=== PATIENT | male | born 1950 | race Caucasian/White ===

== ENCOUNTER 2018-04-24 12:30 | Inpatient (IN) | payer OTHER ==
[2018-04-24] VITALS (13 sets, daily range): BP systolic 131–160; BP diastolic 81–103; BMI 32.2
[~2018-04-24] VITALS: Ht 182.9 cm; Wt 103.8 kg
--- NOTE | ~2018-04-24 | HEMODYNAMI ---
PATIENT:DESIREE MORRELL MEDICAL RECORD: [id number] : 46 LOCATION:[facility] D.2121 LOCATED WITHIN [facility]# [id number] ADMISSION DATE: 04/24/18 Generatedon:04/25/201810:01 Patient name: DESIREE MORRELL Patient #: [id number] SSN: : 1950 Date of study: 04/25/2018 Page: Of Hemodynamic Procedure Report Patient Data Patient Demographics Procedure consent was obtained First Name: DESIREE Gender: Male Last Name: PETROS : 1950 [facility] Initial: C Age: 67 year(s) Patient #: [id number] Race: Additional ID: [id number] Contact details [address]: [address] [place] [address] [place] State: [place] City: [place] Zip code: [address] Past Medical History History of disease Date Diagnosis Comments CHF Allergies Allergen Reaction Date Comments Reported Other allergy 03/24/2015 Lisinopril, Niacin IV contrast dye 03/24/2015 Admission Admission Data Admission Date: 04/24/2018 Admission Time: 17:52 Admit Source: Other Insurance Payor: [facility] Room #: D.2121 Health Care Lab Results Lab Result Date: 04/25/2018 Lab Result Time: 4:21 Biochemistry Name Units Result Min Max BUN mg/dl 19 --(----)*- 7 18 Creatinine mg/dl 1.3 --(---*)-- 0.6 1.3 Troponin l ng/ml 0.114 --(----)-* 0 0.06 CBC Name Units Result Min Max Hematocrit % 45.6 --(-*--)-- 42 54 Hemoglobin g/dl 15.5 --(-*--)-- 13.5 17.5 Procedure Procedure Types Cath Procedure Diagnostic Procedure LHC LHC w/Coronaries Procedure Description Procedure Date Procedure Date: 04/25/2018 Procedure Start Time: 9:49 Procedure End Time: 9:58 Procedure Staff Name Function Khadar Flores MD Performing Physician Norris Almeida RT Scrub Jose Raul Toledo RN Nurse Rohan Koehler RN Furniture Installer Richard Stauffer RT Monitor Procedure Data Cath Procedure Fluoroscopy Diagnostic fluoroscopy Total fluoroscopy Time: 0.9 time: 0.9 min min Diagnostic fluoroscopy Total fluoroscopy dose: 498 dose: 498 mGy mGy Contrast Material Contrast Material Type Amount (ml) Isovue 300 37 Entry Location Entry Primary Successful Side Size Upsize Upsize Entry Closure Succes sful Closure Location (Fr) 1 (Fr) 2 (Fr) Remarks Device Remarks Radial Right 6 Fr artery Short Estimated blood loss: 5 ml Diagnostic catheters Device Type Used For End Catheter Placement DIAGNOSTIC [place] 110cm 5 Procedure Fr catheter ([id number]) Procedure Medications Medication Administration Route Dosage 0.9% NaCl I.V. 100 ml/hr Oxygen etCO2 Nasal cannula 2 l/min Heparin Flush Bag added to field 2 bags (1000units/500ml NS) Lidocaine 2% added to field 20 Radial Cocktail added to field 1 syringe (Verapomil 2mg/Nitro 400mcg/Heparin 1500units) Versed I.V. 2 mg Fentanyl I.V. 100 mcg Radial Cocktail I.A. 1 syringe (Verapomil 2mg/Nitro 400mcg/Heparin 1500units) Hemodynamics Rest HGB: 15.5 (g/dl) Heart Rate: 90 (bpm) Pressure Samples Time Site Value (mmHg) Purpose Heart Use Rate(bpm) 9:51 LV 104/9,11 Snapshot 77 Snapshots Pre Cath Intra NCS Post Cath Vital Signs Time Heart Resp SPO2 etCO2 NIBP (mmHg) Rhythm Pain Sedation Rate (ipm) (%) (mmHg) Status Level (bpm) 9:33:27 82 21 96 30.8 135/100(122) NSR 0 (11) 10(A) , No pain 9:37:35 85 20 92 32.3 137/101(113) NSR 0 (11) 10(A) , No pain 9:41:45 81 19 91 32.3 132/92(108) NSR 0 (11) 10(A) , No pain 9:45:53 84 19 92 31.5 125/93(109) NSR 0 (11) 10(A) , No pain 9:49:57 78 19 91 31.5 131/94(108) NSR 0 (11) 10(A) , No pain 9:54:08 82 20 92 27.7 118/80(94) NSR 0 (11) 10(A) , No pain 9:58:14 76 17 88 29.3 122/83(101) NSR 0 (11) 10(A) , No pain Medications Time Medication Route Dose Verified Delivered Reason Notes Effectiveness by by 9:33:20 0.9% NaCl I.V. 100 Jose Raul Jose Raul Per ml/hr Tre Toledo physician RN RN 9:33:33 Oxygen etCO2 2 l/min Jose Raul Jose Raul for low 02 Nasal Lorigan Altaigan sats cannula RN RN 9:33:44 Heparin Flush added 2 bags Jose Raul Jose Raul used for Bag to Tre Toledo procedure (1000units/500ml field RN RN NS) 9:33:53 Lidocaine 2% added 20ml Jose Raul Jose Raul for local to vial Lorigan Lorigan anesthetic field RN RN 9:34:04 Radial Cocktail added 1 Jose Raul Jose Raul used for (Verapomil to syringe Altaigan Tre procedure 2mg/Nitro field KELLY RN 400mcg/Heparin 1500units) 9:44:53 Versed I.V. 2 mg Jose Raul Jose Raul for sedation Tre Toledo RN RN 9:45:00 Fentanyl I.V. 100 mcg Jose Raul Jose Raul for sedation Tre Toledo RN RN 9:50:43 Radial Cocktail I.A. 1 Jose Raul Khadar for (Verapomil syringe Tre Flores MD vasodilation 2mg/Nitro RN 400mcg/Heparin 1500units) Procedure Log Time Note 8:57:14 Informed consent obtained and on chart 8:57:16 Admit Source: Other 8:57:42 Diagnostic Cath status Elective 8:57:43 Time tracking: Regular hours (M-F 7:00 - 5:00) 8:57:47 Plan of Care:Hemodynamics will remain stable., Cardiac rhythm will remain stable., Comfort level will be maintained., Respiratory function will remain adequate., Patient/ family verbilizes understanding of procedure., Procedure tolerated without complication., Recovers from procedure without complications.. 8:58:08 H&P Date Dictated: 04/24/2018 Within 30 days and on chart.. 8:59:08 Lab Result : BUN 19 mg/dl 8:59:08 Lab Result : Creatinine 1.3 mg/dl 8:59:08 Lab Result : Troponin l 0.114 ng/ml 8:59:08 Lab Result : Hematocrit 45.6 % 8:59:08 Lab Result : Hemoglobin 15.5 g/dl 8:59:10 Lab results completed and on chart. 9:11:51 Jose Raul Toledo RN sent for patient. Start room use. 9:20:38 Insurance Payor : [facility] 9:23:03 ----Pre-sedation anethsthesia assessment.---- 9:23:19 Patient received from PCU to CCL 2 Alert and oriented. Tansferred to table in Supine position. 9:23:20 Warm blankets applied, and keshav hugger turned on for patient comfort. 9:23:21 Correct patient and procedure confirmed by team. 9:23:28 Pre-procedure instructions explained to patient. 9:23:29 Pre-op teaching completed and patient verbalized understanding. 9:23:35 Family in patients room. 9:23:42 Previous problem with sedation/anesthesia? No ? 9:23:56 Snore? Yes 9:24:00 Sleep apnea? Yes 9:24:02 Deviated septum? No 9:24:04 Opens mouth fully? Yes 9:24:05 Sticks out tongue? Yes 9:24:13 Airway obstruction? Yes COPD 9:24:24 Dentures? Yes IN TIGHT 9:25:54 ALLERGY: CONTRAST, LISINOPRIL, NIACIN 9:26:01 Is the patient allergic to Iodine/contrast media? Yes. 9:26:03 Was the patient premedicated? Yes 9:26:11 Is patient on blood thinner?No 9:26:14 Patient diabetic? Yes. 9:26:16 If diabetic: On Metformin? Yes 9:26:21 If on Metformin: Last Dose? 04/21/2018 9:26:48 Patient pain scale 0/10 ?. 9:28:16 IV patent on arrival in left hand with 0.9% NaCl at O. 9:28:22 Pre procedure: right dorsailis pedis pulse 1+ Palpable, but thready & weak; easily obliterated 9:28:35 ECG and BP/O2 sat monitors applied to patient. 9:28:36 Vital chart was started 9:28:37 Baseline sample Acquired. 9:28:46 Rhythm: paced 9:30:37 Use device set Radial Dx or PCI 9:30:38 ACIST Syringe (14103) opened to sterile field. 9:30:39 Medline Cath Pack ([id number]) opened to sterile field. 9:30:40 Bag Decanter (2002) opened to sterile field. 9:30:40 DIAGNOSTIC WIRE .035 260cm J wire (396238) opened to sterile field. 9:30:41 ACIST Hand Control (50621) opened to sterile field. 9:30:42 ACIST Manifold (25150) opened to sterile field. 9:30:43 Tegaderm 4 x 4 (1626W) opened to sterile field. 9:30:44 MBrace Wrist Support ([id number]) opened to sterile field. 9:30:49 SHEATH 6FR Slender (04-3969) opened to sterile field. 9:31:06 Right Radial & Right Groin area was prepped with chlora-prep and draped in sterile fashion 9:31:11 Alarms reviewed by R. N. 9:31:13 Sharps counted by scrub and verified by R.N. 9:33:20 0.9% NaCl 100 ml/hr I.V. was administered by Jose Raul Toledo RN; Per physician; 9:33:33 Oxygen 2 l/min etCO2 Nasal cannula was administered by Jose Raul Toledo RN; for low 02 sats; 9:33:44 Heparin Flush Bag (1000units/500ml NS) 2 bags added to field was administered by Jose Raul Toledo RN; used for procedure; 9:33:53 Lidocaine 2% 20ml vial added to field was administered by Jose Raul Toledo RN; for local anesthetic; 9:34:04 Radial Cocktail (Verapomil 2mg/Nitro 400mcg/Heparin 1500units) 1 syringe added to field was administered by Jose Raul Toledo RN; used for procedure; 9:37:47 DR. FLORES IN ROOM 1 9:39:20 Zero performed for pressure channel P1 9:43:54 Physician arrived 9:43:55 --------ALL STOP TIME OUT------ 9:43:56 Final Timeout: patient, procedure, and site verified with staff and physician. All members of the team are in agreement. 9:43:59 Right Radial & Right Groin site verified by team. 9:44:09 Fire Safety Assessment: A--An alcohol-based skin anteseptic being used preoperatively., C--Open oxygen or nitrous oxide is being used., D--An ESU, laser, or fiber-optic light is being used. 9:44:15 Physical assessment completed. ASA score P 2 - A patient with mild systemic disease as per Khadar Flores MD. 9:44:20 Sedation plan: IV Moderate Sedation Medication:Versed, Fentanyl 9:44:53 Versed 2 mg I.V. was administered by Jose Raul Toledo RN; for sedation; 9:45:00 Fentanyl 100 mcg I.V. was administered by Jose Raul Toledo RN; for sedation; 9:49:10 Procedure started. 9:49:10 Full Disclosure recording started 9:49:20 Local anesthetic to right radial artery with Lidocaine 2% by Khadar Flores MD.INITIAL ACCESS ONLY 9:50:07 A 6 Fr Short sheath was inserted into the Right Radial artery 9:50:26 A DIAGNOSTIC [place] 110cm 5 Fr catheter (353830) was advanced over the wire and used for Procedure. 9:50:43 Radial Cocktail (Verapomil 2mg/Nitro 400mcg/Heparin 1500units) 1 syringe I.A. was administered by Khadar Flores MD; for vasodilation; 9:51:48 LV gram done using MADISON 9:51:49 LV hemodynamics recorded. 9:52:06 EF : 15 % 9:52:18 LCA angiography performed. 9:52:59 RCA angiography performed. 9:53:07 Catheter removed. 9:54:07 ZEPHYR REGULAR TR BAND NO COST(127660) opened to sterile field. 9:55:34 SHEATH REMOVED INTACT ZEPHYR INFLATED TO 7 CC OF AIR 9:55:38 Procedure ended.(Physican Out) 9:55:57 Fluoroscopy time 00.90 minutes. 9:56:03 Flurop Dose total: 498 9:56:03 Fluoroscopy dose: 498 mGy 9:56:08 Contrast amount:Isovue 300 37ml. 9:56:09 Sharps counted by scrub and verified by R.N. 9:56:14 Insertion/operative site no bleeding no hematoma. 9:56:21 Post right radial artery:stable 9:56:29 Post-procedure physical assessment completed. ASA score P 2 - A patient with mild systemic disease as per Khadar Flores MD. 9:56:34 Post procedure rhythm: unchanged., paced 9:56:37 Estimated blood loss: 5 ml 9:56:44 Patient needs reinforcement of post procedure teaching. 9:57:10 Procedure and supply charges have been captured, reviewed, submitted and are correct. 9:58:24 Vital chart was stopped 9:58:25 See physician's report for complete and final results. 9:58:27 Report given to PCU. 9:58:40 Patient transfered to PCU with Bed. 9:58:49 Procedure ended. 9:58:49 Full Disclosure recording stopped 9:58:54 End room use (Document Last) Device Usage Item Name Manufacture Quantity Catalog Hospital Part Current Minima l Lot# / Number Charge Number Stock Stock Serial# Code ACIST Acist 1 87407 748547 409291 195793 20 Syringe Medical (71389) Systems Inc Medline Cath Medline 1 [id number] 170847 20455 300755 5 Pack ([id number]) Bag Decanter Microtek 1 2002S 071008 27769 100691 5 (2001S) Medical Inc. DIAGNOSTIC [place] 1 984276 149779 469182 256906 30 WIRE .035 260cm J wire (577697) ACIST Hand Acist 1 33314 534047 369861 140676 5 Control Medical (27717) Systems Inc ACIST Acist 1 88905 400264 378525 636925 5 Manifold Medical (02311) Systems Inc Tegaderm 4 x 3M 1 1626W 835101 400486 302462 5 4 (1626W) MBrace Wrist Advanced 1 140-0250-00 004970 47838 091712 5 Support Vascular (066695991) Dynamics SHEATH 6FR Terumo 1 [id number] 251045 700212 761697 5 Slender (80-1060) DIAGNOSTIC Terumo 1 40-8493 793719 604879 302098 5 [place] 110cm 5 Fr catheter (066570) ZEPHYR Cardinal 1 890915 835750 252177 5 REGULAR TR Health BAND NO COST(897912) Signature Audit Elizabeth Stage Time Signature Unsigned Intra-Procedure 04/25/2018 Richard Stauffer 10:00:57 AM RT(R) (CV) Signatures Monitor : Richard Stauffer RT Signature : Date : Time : [place] [id number] [place] [address]
[~2018-04-24 12:30] MED LIST: BAYER CHEWABLE81 MG PO; BUMEX2 MG PO; GLUCOPHAGE500 MG PO; INSPRA25 MG PO; K-DUR20 MEQ PO; METOPROLOL TAR100 M1 PO; OPTIVE SENSITI1 EACH EACH EYE; OXYCODONE HCL5 MG PO; VALIUM5 MG PO; VIAGRA50 MG PO
[2018-04-24] MEDS ORDERED: LITE COAT ASPI325 MG PO (12:34)
[2018-04-24] MEDS ORDERED: PROTONIX40 MG PO (12:37)
[2018-04-24] MEDS ORDERED: CYCLOBENZAPRINE10 MG PO (12:37)
[2018-04-24] MEDS ORDERED: PRAVASTATIN SOD10 MG PO (12:38)
[2018-04-24] MEDS ORDERED: LANOXIN125 MCG PO (12:38)
[2018-04-24] MEDS ORDERED: MULTI-DAY VITAM1 TAB PO (12:38)
[2018-04-24] MEDS ORDERED: ALBUTEROL SULF8.5 GM INH (12:39)
[2018-04-24] MEDS ORDERED: COMBIVENT RESPIM4 GM INH (12:39)
[2018-04-24 13:17] LABS: BASOPHILS 0.2 % (0-2); EOSINOPHILS 0.4 % (0-7); HEMATOCRIT 44.1 % (42.0-54.0); HEMOGLOBIN 15.1 g/dL (13.5-17.5); IMMATURE GRANULOCYTES 0.3 % (0-5); LYMPHOCYTES 14.2 % (15-50); MCH 31.5 pg (26.0-34.0); MCHC 34.2 g/dL (31.0-37.0); MCV 92.1 fL (80.0-100.0); MEAN PLATELET VOLUME 11.9 fL (7.4-10.4); MONOCYTES 6.7 % (2-11); NEUTROPHILS 78.2 % (40-80); PLATELET COUNT 127 10x3/uL (130-400); RBC 4.79 10x6/uL (4.20-6.10); RDW 14.8 % (11.5-14.5); WBC 10.9 10x3/uL (4.8-10.8)
[2018-04-24 13:39] LABS: ALBUMIN 3.5 g/dL (3.4-5.0); ALKALINE PHOSPHATASE 56 U/L (46-116); ALT (SGPT) 25 U/L (10-68); BILIRUBIN - TOTAL 2.71 mg/dL (0.2-1.3); CALC OSMOLALITY 283 mosm/kg (275-300); CALCIUM 8.8 mg/dL (8.5-10.1); CARBON DIOXIDE 22.7 mmol/L (21.0-32.0); CHLORIDE - SERUM 102 mmol/L (98-107); CREATININE - SERUM 1.2 mg/dL (0.6-1.3); POTASSIUM - SERUM 3.9 mmol/L (3.5-5.1); PROTEIN - SERUM 7.5 g/dL (6.4-8.2); SODIUM 138 mmol/L (136-145); UREA NITROGEN 16 mg/dL (7-18); eGFR NON AFRICAN AMERICAN 64 mL/min (90-120)
[2018-04-24 13:41] LABS: GLUCOSE 231 mg/dL (74-106)
[2018-04-24 14:02] LABS: CKMB 1.4 U/L (0.0-3.6); CREATINE KINASE 58 UL (21-232); PRO BNP 8060 pg/mL (0-125)
[2018-04-24 14:06] LABS: TROPONIN-I 0.087 ng/mL (0.000-0.060)
--- NOTE | 2018-04-24 14:08 | NUR ---
CRITICAL LAB: TROPONIN 0.087. PAULINE PERSON. NOTIFIED DR. GUTIERREZ.
--- NOTE | 2018-04-24 14:15 | NUR ---
URINE COLLECTED BY NURSE AND SENT TO LAB.
[2018-04-24 15:08] LABS: APPEARANCE HAZY (CLEAR); COLOR YELLOW (YELLOW); GLUCOSE 100 mg/dL (NEGATIVE); KETONE SMALL mg/dL (NEGATIVE); NITRITE NEGATIVE (NEGATIVE); PROTEIN TRACE mg/dL (NEGATIVE); SPECIFIC GRAVITY 1.005 (1.005-1.020)
[2018-04-24 15:09] LABS: BILIRUBIN NEGATIVE (NEGATIVE)
[2018-04-24 15:12] LABS: BACTERIA FEW /hpf (NONE SEEN); WHITE CELLS - URINE 0-5 /hpf (0-5)
--- NOTE | 2018-04-24 18:05 | NUR ---
ARRIVE TO ROOM VIA WHEELCHAIR. ALERT AND ORIENTED X4. GAIT STEADY. BAG OF MEDICATIONS IN ROOM. PATIENT STATES, "MY WILL BE PICKING THESE UP SOON." [facility] PAT[facility]. [facility] FOR [facility]. WILL USE [facility] IF NEEDED. REFUSE SCDs. UP AD TIFFANIE. RT HAND IV SL. ALLERGY BAND PLACED. CONSENTS FOR PIPE TESTING TECHNICIAN SIGNED ON CHART. SINUS PACED ON TELEMETRY. CONTINUE ADMISSION PROCESS. BED LOCKED AND LOW. CALL LIGHT IN REACH. TWO SIDERAILS UP.
--- NOTE | 2018-04-24 19:23 | NUR ---
RECIEVED UP IN BED WOOD EYES OPEN. ALERT AND ORIENTED X4. UPON ASSESSING IV TO RIGHT HAND IT WAS INFILTRATED. WILL RESTART IV TO LEFT HAND D/T CARDIAC CATH IN A.M. EDUCATED ON NPO AFTER MN STATUS. REQUESTED SOMETHING TO EAT STATED AAAAA' I HAVE'NT EATEN ANYTHING IN TWO DAYS. DENIES ANY OTHER NEEDS, WILL CONT. POC.
--- NOTE | 2018-04-24 20:11 | NUR ---
IV RESTARTED TO LEFT HAND. 20 GA WITH ATTEMPTS X1 IV TO RIGHT WRIST D/C WITH CATH INTACT.
[2018-04-25 02:25] VITALS: BP 124/88
[2018-04-25 05:19] LABS: BASOPHILS 0.2 % (0-2); EOSINOPHILS 0.1 % (0-7); HEMATOCRIT 45.6 % (42.0-54.0); HEMOGLOBIN 15.5 g/dL (13.5-17.5); IMMATURE GRANULOCYTES 0.3 % (0-5); MCH 31.3 pg (26.0-34.0); MCV 92.1 fL (80.0-100.0); MONOCYTES 8.7 % (2-11); NEUTROPHILS 74.7 % (40-80); RBC 4.95 10x6/uL (4.20-6.10); RDW 14.9 % (11.5-14.5); WBC 11.9 10x3/uL (4.8-10.8)
[2018-04-25 05:28] LABS: PLATELET COUNT 154 10x3/uL (130-400)
[2018-04-25 05:51] LABS: ALBUMIN 3.5 g/dL (3.4-5.0); ALKALINE PHOSPHATASE 58 U/L (46-116); ALT (SGPT) 24 U/L (10-68); BILIRUBIN - TOTAL 3.73 mg/dL (0.2-1.3); CALC OSMOLALITY 287 mosm/kg (275-300); CALCIUM 8.3 mg/dL (8.5-10.1); CHLORIDE - SERUM 101 mmol/L (98-107); CKMB 1.4 U/L (0.0-3.6); CREATINE KINASE 51 UL (21-232); CREATININE - SERUM 1.3 mg/dL (0.6-1.3); GLUCOSE 196 mg/dL (74-106); PROTEIN - SERUM 7.6 g/dL (6.4-8.2); SODIUM 141 mmol/L (136-145); UREA NITROGEN 19 mg/dL (7-18); eGFR NON AFRICAN AMERICAN 58 mL/min (90-120)
[2018-04-25 05:55] LABS: POTASSIUM - SERUM 3.3 mmol/L (3.5-5.1); TROPONIN-I 0.114 ng/mL (0.000-0.060)
[2018-04-25 07:27] VITALS: BP 132/95
--- NOTE | 2018-04-25 10:16 | NUR ---
ARRIVE BACK TO ROOM FROM COUNTER CUTTER VIA BED. ALERT AND ORIENTED X4. RT WRIST TR BAND CLEAN DRY INTACT. FREE FROM BLEEDING. FREE FROM HEMATOMA. BP-129/81, HR-78 PACED SINUS RHYTHM ON TELEMETRY. O2 SAT 94% WITH 2L NC. DENIES ANY NEEDS. CONTINUE PLAN OF CARE AND SAFETY PRECAUTIONS.
--- NOTE | 2018-04-25 10:45 | CN ---
PATIENT NAME:DESIREE MORRELL MEDICAL RECORD: [id number] : 46 LOCATION:[facility] D.2121 ADMIT DATE: 04/24/18 ACCOUNT: [id number] CONSULTING PHYSICIAN: FERMÍN HERNANDEZ MD REFERRING PHYSICIAN: MATT HCANEY MD DATE OF CONSULTATION: 04/24/2018 DIAGNOSES: 1. Congestive heart failure, chronic systolic dysfunction. 2. Shortness of breath. 3. Pulmonary edema. 4. Elevated troponin. 5. Hypertension. 6. Hyperlipidemia. 7. Sick sinus syndrome, status post pacemaker. 8. Smoking history. 9. COPD. 10. Noninsulin-dependent diabetes. HISTORY: This is a gentleman normally followed at the [facility], who presents with 2 weeks of increasing chest heaviness and shortness of breath. His chest x-ray is compatible with pulmonary edema. He as well has COPD and smoking history. He does not have a history of ischemic heart disease. His troponin is elevated. He has been having chest pressure along with shortness of breath. PHYSICAL EXAMINATION: GENERAL APPEARANCE: Well-nourished, well-developed, appears stated age. Level of distress, comfortable. PSYCHIATRIC: Mental status, alert, normal affect. Orientation, oriented to time, place and person. EYES: Lids and conjunctiva, noninjected. No discharge, no pallor. ENT: Lips, teeth, gums, normal dentition. Oropharynx, no cyanosis, no pallor. NECK: Carotid arteries, bilateral normal upstroke, no bruits, no thrills. JUGULAR VEINS: No jugular venous pressure or distention. CERVICAL LYMPH NODES: Nontender, nonenlarged. THYROID: Not enlarged. Nontender. No nodules. LUNGS: Respiratory effort, unlabored. CHEST: Normal curvature. No thoracic deformity. No chest wall tenderness. Percussion, resonant. Auscultation, clear. No wheezes, no rales, no rhonchi. CARDIOVASCULAR: Precordial exam, nondisplaced. No heaves or pericardial thrills. Rate and rhythm, regular. Heart sounds, normal S1, normal S2. No S3, no gallop, no rub. Systolic murmur, not heard. Diastolic murmur, not heard. EXTREMITIES: No cyanosis, no edema. Peripheral pulses, full and equal in all extremities, except as noted. No bruits appreciated. ABDOMEN: Soft, nondistended. Normal aorta. No bruit. Nontender. No masses. Liver, nontender, no hepatomegaly. Spleen, nontender, no splenomegaly. MUSCULOSKELETAL: No joint tenderness. No joint swelling. No erythema. NEUROLOGICAL: Normal gait, normal strength, normal tone. SKIN: Warm and dry. OVERALL IMPRESSION: Increasing shortness of breath, pulmonary edema, and anginal chest discomfort in a patient with multiple risk factors including hypertension, hyperlipidemia, diabetes, smoking, and COPD. He has a high likelihood of hemodynamically significant coronary artery disease as well as a cardiomyopathy. We will get an echocardiogram for evaluation of his ejection CONSULT REPORT [id number] DESIREE MORRELL fraction. Start with IV diuretics. Continue his home meds. Plan for cardiac catheterization in the a.m. TRANSINT:[id number] Voice Confirmation ID: [id number] DOCUMENT ID: [id number] FERMÍN HERNANDEZ MD at 1045 CC: [id number] DICTATION DATE: 04/24/18 1532 MOBILE MARKETING MANAGER: 04/24/18 1807 ADM IN [facility] [address] [place] [id number]
[2018-04-25 12:11] VITALS: BP 109/80
[2018-04-25 13:29] VITALS: Ht 182.9 cm; Wt 103.8 kg
[2018-04-25 14:52] VITALS: BP 116/76
--- NOTE | 2018-04-25 19:21 | NUR ---
RECIEVED LAYING IN BED WITH EYES OPEN AND TV ON. ALERT AND ORIERNTED X4. TR BAND STILL ION PLACE AND DEFLATED. REMOVED TR BAND AND APPLIED BANDAID. EDUCATED ON S/S OF BLEEDING AND TO USE CALL LIGHT FOR HELP IF STARTS BLEEDING. VERBAL UNDERSTANDING GIVEN. DENIES ANY OTHER NEEDS AT THIS TIME.
[2018-04-25 20:00] VITALS: BP 135/78
[2018-04-26 04:00] VITALS: BP 133/58
[2018-04-26 05:27] LABS: BASOPHILS 0 % (0-2); EOSINOPHILS 0 % (0-7); HEMATOCRIT 44.6 % (42.0-54.0); HEMOGLOBIN 15.1 g/dL (13.5-17.5); IMMATURE GRANULOCYTES 0.2 % (0-5); LYMPHOCYTES 11.5 % (15-50); MCH 31.3 pg (26.0-34.0); MCHC 33.9 g/dL (31.0-37.0); MCV 92.3 fL (80.0-100.0); MEAN PLATELET VOLUME 11.5 fL (7.4-10.4); MONOCYTES 6.6 % (2-11); NEUTROPHILS 81.7 % (40-80); PLATELET COUNT 159 10x3/uL (130-400); RBC 4.83 10x6/uL (4.20-6.10); RDW 14.7 % (11.5-14.5); WBC 11.5 10x3/uL (4.8-10.8)
[2018-04-26 05:52] LABS: ANION GAP 16.5 mmol/L (8-16); CALCIUM 8.3 mg/dL (8.5-10.1); CARBON DIOXIDE 25.5 mmol/L (21.0-32.0); CREATININE - SERUM 1.4 mg/dL (0.6-1.3); MAGNESIUM - SERUM 1.8 mg/dL (1.8-2.4)
--- NOTE | 2018-04-26 07:25 | NUR ---
ASSESSMENT DONE. DENIES NEEDS.
[2018-04-26 07:48] VITALS: BP 120/87
--- NOTE | 2018-04-26 08:36 | NUR ---
NO NEEEDS OR C/O VOICED. CALL LIGHT IN REACH. WILL MONITOR.
--- NOTE | 2018-04-26 11:20 | OP ---
PATIENT NAME: DESIREE MORRELL MEDICAL RECORD: [id number] :46 LOCATION:D.M2 D.2121 ADMISSION DATE:04/24/18 SURGEON: FERMÍN HERNANDEZ MD DATE OF OPERATION: 04/25/2018 PROCEDURES: 1. Left heart catheterization. 2. Selective coronary angiography. 3. Left ventriculogram. INDICATION: Congestive heart failure, cardiomyopathy, increased troponin. PROCEDURE IN DETAIL: After informed consent was obtained and after detailed description of risks, benefits as well as alternative therapies, the patient elected to proceed with angiogram and heart catheterization. The right radial area was prepped and draped in normal sterile fashion. Right radial artery was cannulated via modified Seldinger technique with placement of 5-Polish sheath. All catheters exchanged through this sheath. FINDINGS: Left ventriculogram was performed in standard 30-degree MADISON view, reveals global hypokinesis throughout all segments. Overall ejection fraction estimated at 15%. SELECTIVE CORONARY ANGIOGRAPHY: Left main, left anterior descending, left circumflex, right coronary artery are all smooth-walled vessels with no angiographic evidence of coronary artery disease. OVERALL IMPRESSION: 1. No angiographic evidence of coronary artery disease. 2. Normal left heart pressures. 3. Severe cardiomyopathy, ejection fraction 10% to 15%. Center medical management on treatment of the cardiomyopathy. TRANSINT:[id number] Voice Confirmation ID: [id number] DOCUMENT ID: [id number] FERMÍN HERNANDEZ MD at 1120 CC: [id number] DICTATION DATE: 04/25/18 0959 BREAD OVEN OPERATOR: 04/25/18 1106 [place] [address]
--- NOTE | 2018-04-26 11:20 | EC ---
PATIENT:DESIREE MORRELL DATE OF SERVICE: 04/24/18 SEX: M MEDICAL RECORD: [id number] DATE OF : [birth year] LOCATION:D.M2 D.212 AGE OF PATIENT: 67 ADMISSION DATE: 04/24/18 REFERRING PHYSICIAN: INTERPRETING PHYSICIAN: FERMÍN FLORES MD ECHOCARDIOGRAM REPORT ECHO CHARGES 4 ECHO COMPLETE Date: 04/25/18 CLINICAL DIAGNOSIS: CHF HX ICD ECHOCARDIOGRAPHIC MEASUREMENTS (adult normal given) AC root (d.<3.7cm) 3.9 cm LV Septum d (<1.2 cm> 1.3 cm Valve Excursion 1.6 cm LV Septum (systole) 1.4 cm Left Atria (s.<4.0cm> 4.1 cm LVPW d(<1.2cm) 1.2 cm RV (d.<2.3cm) 56 cm LVPW (sytole) 1.3 cm LV diastole(<5.6CM) 6.8 cm MV E-F(>70mm/sec) cm LV systole 6.1 cm LVOT Diameter 2.1 cm MV exc.(>10mm) 1.4 cm Est.ejection fraction (50-75%) % DOPPLER: LVIT cm/sec A 42.0 cm/sec E 97.0 cm/sec LA cm/sec RVSP 59 mmHg LVOT 62 cm/sec AOP1/2T m/s Asc. Ao 93 cm/sec RVOT 56 cm/sec RA cm/sec PA 104 cm/sec AV Gradient Peak 3.46 mmHg AV Mean 1.90 mmHg AV Area 1.8 cm MV Gradient Peak 5.77 mmHg MV Mean 1.87 mmHg MV Area cm COMMENTS: Trial Manager: Iam DUMONT Hi Lo Driver: 1 Dr. Flores TAPE# PACS Pericardial Effusion N DATE OF SERVICE: 04/25/2018 PROCEDURE: Echocardiogram. FINDINGS: 1. Left ventricular chamber size is dilated. Left ventricular systolic function is markedly reduced. Overall ejection fraction estimated at 25%. 2. Left atrium is dilated. Right atrium and right ventricular chamber sizes are as well dilated giving 4-chamber dilatation. 3. Valvular structures have normal structure and motion. ECHOCARDIOGRAM REPORT [id number] DESIREE MORRELL 4. Doppler interrogation reveals mild mitral regurgitation, mild tricuspid regurgitation, no other valvular insufficiency or stenosis. Pulmonary systolic pressure is elevated estimated at 60 mmHg. 5. No evidence of pericardial effusion or left ventricular thrombus. TRANSINT:[id number] Voice Confirmation ID: [id number] DOCUMENT ID: [id number] FERMÍN FLORES MD at 1120 CC: [id number] DICTATION DATE: 04/25/18 1243 GOVERNMENT PROPERTY INSPECTOR: 04/25/18 1322 ADM IN [place] [id number] [place] [address]
[2018-04-26 11:52] VITALS: BP 128/89
[2018-04-26 15:26] VITALS: BP 136/78
[2018-04-26 20:00] VITALS: BP 123/83
[2018-04-27 00:43] VITALS: BP 126/84
[2018-04-27 04:00] VITALS: BP 124/76
[2018-04-27 05:21] LABS: BASOPHILS 0.3 % (0-2); EOSINOPHILS 0.3 % (0-7); HEMATOCRIT 44.8 % (42.0-54.0); HEMOGLOBIN 15.3 g/dL (13.5-17.5); IMMATURE GRANULOCYTES 0.3 % (0-5); LYMPHOCYTES 28.7 % (15-50); MCH 31.2 pg (26.0-34.0); MCHC 34.2 g/dL (31.0-37.0); MCV 91.2 fL (80.0-100.0); MEAN PLATELET VOLUME 11.9 fL (7.4-10.4); MONOCYTES 9.1 % (2-11); NEUTROPHILS 61.3 % (40-80); PLATELET COUNT 140 10x3/uL (130-400); RBC 4.91 10x6/uL (4.20-6.10); RDW 14.6 % (11.5-14.5)
[2018-04-27 05:31] LABS: ANION GAP 12.1 mmol/L (8-16); CALCIUM 7.9 mg/dL (8.5-10.1); CARBON DIOXIDE 28.1 mmol/L (21.0-32.0); CREATININE - SERUM 1.5 mg/dL (0.6-1.3)
[2018-04-27 05:46] LABS: POTASSIUM - SERUM 3.2 mmol/L (3.5-5.1)
[2018-04-27 07:58] VITALS: BP 123/82
--- NOTE | 2018-04-27 09:23 | NUR ---
RESP UL ON . CALL LIGHT IN REACH. WILL CONT. PLAN OF CARE.
--- NOTE | 2018-04-27 09:48 | NUR ---
ALERT AND ORIENTED.UP AB TIFFANIE. TELEMERTY SHOWS PACED RHYTHM. POTASIM LEVEL LOW AND WAS TREATED. NO NEEDS VOICED. WILL MONITOR
[2018-04-27 11:33] VITALS: BP 111/88
[2018-04-27 15:14] VITALS: BP 126/86
--- NOTE | 2018-04-27 16:10 | NUR ---
PT DISCHARGED. IV DCD EITH TIP INTACT. INSTRUCRIONS GIVEN TO PT. TO PRIVATE CAR PER WHEELCHAIR
--- NOTE | 2018-04-27 18:07 | MORECARE ---
CASE MANAGEMENT DISCHARGE SUMMARY PATIENT: DESIREE MORRELL UNIT: [id number] ADM DATE: 04/24/18 AGE: 67 : 46 SEX: M ROOM/BED: D.2121 AUTHOR: [place] PHYSICIAN: REFERRING PHYSICIAN: MATT CHANEY MD DATE OF SERVICE: 04/27/18 Discharge Plan Patient Name: DESIREE MORRELL Facility: [facility]:[place] : 1950 Planned Disposition: Home Anticipated Discharge Date: 04/27/18 Discharge Date: 04/27/2018 Expected LOS: 3 Initial Reviewer: [email or web address] Initial Review Date: 04/27/2018 Generated: 04/27/18 7:07 pm Comments DCP- Discharge Planning Updated by [email or web address]: Diony Lemos on 04/27/18 5:[address] Patient Name: DESIREE MORRELL Admission Status: ER Accout number: [id number] Admission Date: 04-24-2018 : 1950 Admission Diagnosis: Attending: MATT CHANEY Current LOS: 3 Anticipated DC Date: 04-27-2018 Planned Disposition: Home Primary Insurance: [employer] Discharge Planning Comments: CM MET WITH PT IN ROOM TO DISCUSS DISCHARGE PLANNING AND NEEDS. PT REPORTS LIVING AT HOME INDEPENDENTLY WITH SPOUSE. PT HAS CANE, CPAP, CRUTCHES AND WALKER FROM [place]. PT HAS NO OUTSIDE SERVICES ASSISTING IN THE HOME. CM DISCUSSED AVAILABILITY OF HOME HEALTH, REHAB SERVICES AND MEDICAL EQUIPMENT. PT DENIES DISCHARGE NEEDS, REPORTS HIS WILL PICK HIM UP FOR DISCHARGE HOME. PT ASKED CM TO FAX HIS INFORMATION TO DR. LAFLEUR AT THE [facility] TO HELP WITH HIS FOLLOW UP THERE. CM CALLED [facility], , MEDICAL RECORD SPECIALIST PROVIED FAX NUMBER FOR PT'S DOCTOR. CM FAXED REQUESTED INFORMATION TO DR. LAFLEUR AT THE [place], . DINKEY ENGINEER NURSE NOTIFIED. Dormitory Maid: Diony Lemos DCPIA - Discharge Planning Initial Assessment Updated by [email or web address]: Diony Lemos on 04/27/18 6:03 pm * Is the patient Alert and Oriented? Yes * How many steps to enter\exit or inside your home? NONE * PCP DR. LAFLEUR, [facility] * [facility] * Preadmission Environment Home with Family * ADLs Independent * Equipment Cane CPAP Crutch Walker * Other Equipment [facility] - MEDICAL EQUIPMENT PROVIDER * List name and contact numbers for known caregivers / representatives who currently or will assist patient after discharge: JEY MORRELL, SPOUSE, * Verbal permission to speak to the caregivers and representatives has been obtained from the patient. N/A * Community resources currently utilized None * Please name any agencies selected above. NONE * Additional services required to return to the preadmission environment? No * Can the patient safely return to the preadmission environment? Yes * Has this patient been hospitalized within the prior 30 days at any hospital? No External Providers External Provider: OTHER-OTHER Next Contact Date: 04/27/2018 Service Request Date: Service Type: Resolution: Reviewer: Comments: Patient Name: DESIREE MORRELL Page [phone] at 1807 All edits/amendments must be made on the electronic document DICTATION DATE: 04/27/181806 TURKISH RUBBER: DIANDRA 04/27/181806 RPT#: [id number] DC DATE:04/27/18 STATUS: DIS IN [facility] [address] [place] [address] END OF REPORT
== END 2018-04-27 17:21 | disposition home or self-care (01) | DRG 287 ==
LOC: D.ER 12:30 → D.M2 17:52
PROVIDERS: Family Medicine; Internal Medicine Interventional Cardiology; ADMIT Internal Medicine Nephrology
PROC: B2150ZZ Fluoroscopy of Left Heart using High Osmolar Contrast (ICD-10-PCS; 2018-04-25)
PROC: 4A023N7 Measurement of Cardiac Sampling and Pressure, Left Heart, Percutaneous Approach (ICD-10-PCS; 2018-04-25)
PROC: B2110ZZ Fluoroscopy of Multiple Coronary Arteries using High Osmolar Contrast (ICD-10-PCS; principal; 2018-04-25 09:11)
DX: I11.0 Hypertensive heart disease with heart failure (principal); N17.9 Acute kidney failure, unspecified; I42.9 Cardiomyopathy, unspecified; I50.23 Acute on chronic systolic (congestive) heart failure; E87.6 Hypokalemia; E11.9 Type 2 diabetes mellitus without complications; J44.9 Chronic obstructive pulmonary disease, unspecified; E78.5 Hyperlipidemia, unspecified; G47.33 Obstructive sleep apnea (adult) (pediatric); Z95.0 Presence of cardiac pacemaker; Z87.891 Personal history of nicotine dependence